=== PATIENT | female | born 1950 | race Two or more races ===

== ENCOUNTER 2017-01-10 11:33 | Inpatient (IN) | payer MEDICARE, OTHER ==
[~2017-01-10] VITALS: Ht 172.7 cm; Wt 63.4 kg
[2017-01-10 13:02] LABS: Basophils # (auto) 0 uL; Basophils % (auto) 0.2 % (0.0-2.0); Eosinophils # (auto) 0 uL; Eosinophils % (auto) 0.4 % (0.0-7.0); Hematocrit 39.1 % (36.0-46.0); Lymphocytes # (auto) 0.4 uL; Mean Corpuscular Hemoglobin 30.7 pg (28.0-32.0); Mean Corpuscular Hgb Conc. 33.1 g/dL (32.0-36.0); Mean Corpuscular Volume 92.8 fL (80.0-100.0); Mean Platelet Volume 8.9 fL (7.4-10.4); Monocytes # (auto) 0.2 uL; Monocytes % (auto) 4.4 % (0.0-12.0); Neutrophils # (auto) 4.4 uL; Platelet Count (auto) 129 10^3/uL (140-450); Red Cell Distribution Width 16.2 % (11.6-16.0); White Blood Cell 5.1 10^3/uL (4.4-10.8)
[2017-01-10 13:28] LABS: Albumin 3.8 g/dL (3.4-5.0); Alkaline Phosphatase 107 U/L (45-117); Anion Gap 10 (5-15); Aspartate Aminotransferase 19 U/L (15-37); BUN/Creatinine Ratio 8.1; Bilirubin, Total 0.5 mg/dL (0.2-1.0); Blood Urea Nitrogen 5 mg/dL (7-18); Calcium 9.1 mg/dL (8.5-10.1); Carbon Dioxide 20 mmol/L (21-32); Chloride 110 mmol/L (98-107); GFR African American 123 mL/min; GFR Non-African American 102 mL/min; Glucose 112 mg/dL (74-106); Potassium 4.2 mmol/L (3.5-5.1); Sodium 140 mmol/L (136-145); Total Protein 7.1 g/dL (6.4-8.2)
[2017-01-10] MEDS ORDERED: SODIUM CHLORIDE 0.9% 500 ML IVB ONE (13:46)
[2017-01-10 16:59] LABS: INR 0.97 (0.9-1.15); Partial Thromboplastin Time 25.1 sec (22.64-33.71); Prothrombin Time 10.5 sec (9.37-12.3)
[2017-01-10] MEDS ORDERED: TEMAZEPAM 15 MG CAP PO PRN (17:00)
[2017-01-10] MEDS ORDERED: LORazepam 0.5 MG TAB PO PRN (17:00)
[2017-01-10] MEDS ORDERED: PROMETHAZINE HCL 25 MG/ML 1ML IV PRN (17:00)
[2017-01-10] MEDS ORDERED: NITROGLYCERIN 0.4 MG SL TAB SL PRN (17:00)
[2017-01-10] MEDS ORDERED: HYDROcodone-ACET 5/325MG TAB PO PRN (17:00)
[2017-01-10] MEDS ORDERED: ALBUTEROL SULF 2.5 MG/0.5ML(0.5%) NEB SOLN NEB PRN (17:00)
[2017-01-10] MEDS ORDERED: LACTULOSE 20Gm/30ML SOLN PO PRN (17:00)
[2017-01-10] MEDS ORDERED: ACETAMINOPHEN 500 MG TAB PO PRN (17:00)
[2017-01-10] MEDS ORDERED: MORPHINE SULF INJ 2 MG/ML SYRINGE 1ML IV PRN ×2 (17:00)
[2017-01-10] MEDS: SODIUM CHLORIDE 0.9% 1,000 ML IV SCH (17:14)
[2017-01-10] MEDS ORDERED: ASPirin 81 mg TAB PO ONE (17:15)
[2017-01-10] MEDS ORDERED: ENOXAPARIN SOD 40 MG/0.4 ML SYRINGE SC ONE (17:30)
[2017-01-10 17:41] LABS: Temperature: 23.7 C (20.0-25.0)
[2017-01-10 20:30] VITALS: BP 152/84
[2017-01-10] MEDS ORDERED: PRE5T PO (20:39)
[2017-01-10] MEDS ORDERED: GABA600T PO ×2 (20:39)
[2017-01-10 20:54] VITALS: BP 152/84
[2017-01-11 01:52] VITALS: BP 152/84
[2017-01-11 04:59] VITALS: BP 136/89
[2017-01-11] MEDS: SODIUM CHLORIDE 0.9% 1,000 ML IV SCH (05:42)
[2017-01-11 06:23] LABS: Cholesterol 137 mg/dL (< 200); HDL Cholesterol 27 mg/dL (40-59); LDL Cholesterol 98 mg/dL (< 100); Triglycerides 224 mg/dL (< 150)
[2017-01-11 07:30] VITALS: BP 155/81
[2017-01-11 07:57] VITALS: BP 155/81
[2017-01-11 09:39] LABS: Urine RBC None Seen /hpf (0 - 4)
[2017-01-11 09:57] LABS: Urine Bilirubin Negative (Negative); Urine Blood Negative /uL (Negative); Urine Color Yellow (Yellow); Urine Glucose Normal (Normal); Urine Ketone Negative (Negative); Urine Nitrite Negative (Negative); Urine Squamous Epithelial Cell FEW /hpf (<5); Urine Urobilinogen Normal (Negative)
[2017-01-11] MEDS ORDERED: ENOXAPARIN SOD 40 MG/0.4 ML SYRINGE SC SCH (10:00)
[2017-01-11] MEDS ORDERED: ASPirin 81 mg TAB PO SCH (10:00)
[2017-01-11] MEDS ORDERED: predniSONE 5 MG TAB PO SCH (10:00)
[2017-01-11 12:09] VITALS: BP 144/75
== END 2017-01-11 17:20 | disposition home or self-care (01) | DRG 74 ==
LOC: EDBD 11:33 → ER 11:40 → OVERFLOW 13:48 → OBSVTOIN 13:48 → TELE 13:49 → TELE-EAST 19:47
PROVIDERS: ADMIT Family Medicine; ATTEND Internal Medicine
DX: G90.8 Other disorders of autonomic nervous system (principal); M33.20 Polymyositis, organ involvement unspecified; F32.9 Major depressive disorder, single episode, unspecified; F41.9 Anxiety disorder, unspecified; G62.9 Polyneuropathy, unspecified; I10 Essential (primary) hypertension; J44.9 Chronic obstructive pulmonary disease, unspecified; K22.2 Esophageal obstruction; W18.39XA Other fall on same level, initial encounter; M19.90 Unspecified osteoarthritis, unspecified site; S13.4XXA Sprain of ligaments of cervical spine, initial encounter; D70.9 Neutropenia, unspecified; M48.02 Spinal stenosis, cervical region; R22.9 Localized swelling, mass and lump, unspecified; Z85.3 Personal history of malignant neoplasm of breast; Z90.12 Acquired absence of left breast and nipple; Y93.89 Activity, other specified; Y92.513 Shop (commercial) as the place of occurrence of the external cause; Y99.8 Other external cause status; Z90.710 Acquired absence of both cervix and uterus; Z72.89 Other problems related to lifestyle
CPT/HCPCS: 36415; 70450; 71010; 72125; 72192; 80053; 80061; 80307; 81001; 82550; 82607; 82746; 83735; 84443; 84484; 85025; 85610; 85652; 85730; 87081; 93005; 93306; 94761; 96372; G0378

== ENCOUNTER 2023-01-15 14:46 | Inpatient (IN) | payer MEDICARE, OTHER ==
[~2023-01-15] VITALS: Ht 162.6 cm; Wt 89.7 kg
[~2023-01-15 14:46] MED LIST: GABA600T PO; PRE5T PO
[2023-01-15] MEDS ORDERED: PANTOPRAZOLE 40 MG/10 ML VIAL INJ IV ONE (16:00)
[2023-01-15] MEDS ORDERED: PANTOPRAZOLE 40mg/50ML NS AE 50 ML IV ONE (16:00)
[2023-01-15] MEDS ORDERED: SODIUM CHLORIDE 0.9% 1,000 ML IV ONE (16:15)
[2023-01-15 17:18] LABS: Basophils # (auto) 0 10 ^3/uL (0-0.2); Basophils % (auto) 0.8 % (0.0-2.0); Eosinophils # (auto) 0 10 ^3/uL (0-0.8); Eosinophils % (auto) 0.6 % (0.0-7.0); Hematocrit 35.1 % (36.0-46.0); Hemoglobin 10.7 g/dL (12.2-16.2); Lymphocytes # (auto) 0.7 10 ^3/uL (0.4-5.4); Lymphocytes % (auto) 14.4 % (10.0-50.0); Mean Corpuscular Hemoglobin 25.4 pg (28.0-32.0); Mean Corpuscular Hgb Conc. 30.4 g/dL (32.0-36.0); Mean Corpuscular Volume 83.6 fL (80.0-100.0); Monocytes # (auto) 0.3 10 ^3/uL (0-1.3); Monocytes % (auto) 5.3 % (0.0-12.0); Neutrophils % (auto) 78.9 % (37.0-80.0); Nucleated Red Blood Cells % 0.1 %
[2023-01-15 17:33] LABS: Urine Bacteria NONE SEEN /hpf (None Seen); Urine Blood Negative /uL (Negative); Urine Hyaline Cast MOD /lpf (0 - 2); Urine Specific Gravity 1.018 (1.001-1.035); Urine WBC 9 /hpf (0 - 5)
[2023-01-15 17:34] LABS: INR 1.19 (0.9-1.15); Partial Thromboplastin Time 28.8 sec (24.6-33.4)
[2023-01-15 17:36] LABS: Albumin 2.2 g/dL (3.4-5.0); Magnesium 2.1 mg/dL (1.6-2.6); Potassium 5.1 mmol/L (3.5-5.1)
[2023-01-15 17:39] LABS: Lactic Acid w/Reflex 2.4 mmol/L (0.4-2.0)
[2023-01-15] MEDS ORDERED: LACTATED RINGER'S 1,000 ML IV ONE (17:45)
[2023-01-15] MEDS ORDERED: VANCOMYCIN 1GM/250ML 250 ML IV ONE ×2 (17:45→20:00)
[2023-01-15] MEDS ORDERED: CEFEPIME 1GM/ 50ML 50 ML IV ONE (17:45)
[2023-01-15 17:50] LABS: BUN/Creatinine Ratio 23.5 (10.0-20.0); Bilirubin, Total 0.5 mg/dL (0.2-1.0); Total Protein 5.2 g/dL (6.4-8.2)
[2023-01-15] MEDS ORDERED: NITROGLYCERIN 0.4 MG SL TAB SL PRN (19:15)
[2023-01-15] MEDS ORDERED: VANCOMYCIN PER PHARMACY 0 MG IV SCH (19:15)
[2023-01-15] MEDS ORDERED: MAGNESIUM SULFATE 1GM/100ML 100 ML IV ONE (19:15)
[2023-01-15] MEDS ORDERED: FUROSEMIDE 40 MG/4 ML VIAL IV ONE (19:30)
[2023-01-15] MEDS ORDERED: PARO10TA93 PO (19:31)
[2023-01-15] MEDS ORDERED: FURO40TA4 PO (19:31)
[2023-01-15] MEDS ORDERED: APIX5TAB PO (19:31)
[2023-01-15] MEDS ORDERED: AMIT-118 PO (19:31)
[2023-01-15] MEDS ORDERED: GABA-339 PO (19:31)
[2023-01-15] MEDS ORDERED: MET25T PO (19:31)
[2023-01-15] MEDS ORDERED: SACU1TAB PO (19:31)
[2023-01-15] MEDS ORDERED: OMEP1CAP70 PO (19:31)
[2023-01-15] MEDS ORDERED: ALBUMIN 25% 50 ML IV ONE (20:00)
[2023-01-15] MEDS ORDERED: SODIUM CHLORIDE 0.9% 1,000 ML IV SCH (20:00)
[2023-01-15] MEDS ORDERED: ALBUTEROL SULF 2.5 MG/0.5ML(0.5%) NEB SOLN NEB PRN (20:15)
[2023-01-15] MEDS ORDERED: IPRATROPIUM BROM 0.5 MG/2.5ML INH SOL NEB PRN (20:15)
[2023-01-15 20:42] VITALS: BP 93/59
[2023-01-15] MEDS: NOREPINEPHRINE 8 MG/250ML KIT 250 ML IV SCH (21:56)
[2023-01-15] MEDS: METOPROLOL TARTRATE 25 MG TAB PO SCH (22:00)
[2023-01-15] MEDS ORDERED: VANCOMYCIN 500 MG in D5W 5% 100 ML IV ONE (22:00)
[2023-01-15] MEDS: GABAPENTIN 300 MG CAP PO SCH (22:53)
[2023-01-16] VITALS (87 sets, daily range): BP systolic 65–149; BP diastolic 46–99
[2023-01-16] MEDS ORDERED: CEFEPIME 1GM/ 50ML 50 ML IV SCH (03:00)
[2023-01-16 04:33] LABS: Basophils # (auto) 0 10 ^3/uL (0-0.2); Eosinophils # (auto) 0.1 10 ^3/uL (0-0.8); Monocytes # (auto) 0.3 10 ^3/uL (0-1.3); Monocytes % (auto) 6.3 % (0.0-12.0)
[2023-01-16 04:34] LABS: Red Cell Distribution Width 19.1 % (11.8-14.3)
[2023-01-16 04:36] LABS: Basophils % (auto) 0.6 % (0.0-2.0); Eosinophils % (auto) 1.7 % (0.0-7.0); Hematocrit 37.6 % (36.0-46.0); Lymphocytes # (auto) 0.8 10 ^3/uL (0.4-5.4); Lymphocytes % (auto) 14.4 % (10.0-50.0); Mean Corpuscular Hemoglobin 26.1 pg (28.0-32.0); Mean Corpuscular Volume 81.4 fL (80.0-100.0); Nucleated Red Blood Cells % 0.1 %; Red Blood Cells 4.61 10^6/uL (4.0-5.20); White Blood Cell 5.2 10^3/uL (4.4-10.8)
[2023-01-16 04:40] LABS: Magnesium 2.2 mg/dL (1.6-2.6); Potassium 3.7 mmol/L (3.5-5.1)
[2023-01-16 04:48] LABS: Albumin 2.3 g/dL (3.4-5.0); BUN/Creatinine Ratio 28.4 (10.0-20.0); Bilirubin, Total 0.9 mg/dL (0.2-1.0); Calcium 7.8 mg/dL (8.5-10.1)
[2023-01-16] MEDS: GABAPENTIN 300 MG CAP PO SCH (06:00)
[2023-01-16] MEDS: CEFEPIME 1GM/ 50ML 50 ML IV SCH ×3 (07:01→23:01)
[2023-01-16] MEDS: METOPROLOL TARTRATE 25 MG TAB PO SCH (10:00)
[2023-01-16] MEDS ORDERED: FUROSEMIDE 40 MG/4 ML VIAL IV SCH (10:00)
[2023-01-16] MEDS: predniSONE 5 MG TAB PO SCH ×2 (10:00→12:39)
[2023-01-16] MEDS: PANTOPRAZOLE 40 MG/10 ML VIAL INJ IV SCH ×2 (10:36→22:52)
[2023-01-16] MEDS: NOREPINEPHRINE 8 MG/250ML KIT 250 ML IV SCH (18:00)
[2023-01-16] MEDS ORDERED: METOPROLOL TARTRATE 1MG/1ML-5ML VIAL IV ONE (22:30)
[2023-01-17] VITALS (93 sets, daily range): BP systolic 83–131; BP diastolic 36–92
[2023-01-17 04:25] LABS: Basophils # (auto) 0 10 ^3/uL (0-0.2); Eosinophils # (auto) 0 10 ^3/uL (0-0.8); Lymphocytes # (auto) 0.8 10 ^3/uL (0.4-5.4); Monocytes # (auto) 0.3 10 ^3/uL (0-1.3); Nucleated Red Blood Cells % 0.1 %
[2023-01-17 04:26] LABS: Basophils % (auto) 0.6 % (0.0-2.0); Eosinophils % (auto) 0.7 % (0.0-7.0); Hematocrit 37.4 % (36.0-46.0); Hemoglobin 12.2 g/dL (12.2-16.2); Lymphocytes % (auto) 13.3 % (10.0-50.0); Mean Corpuscular Hemoglobin 26.6 pg (28.0-32.0); Mean Corpuscular Hgb Conc. 32.6 g/dL (32.0-36.0); Mean Corpuscular Volume 81.7 fL (80.0-100.0); Monocytes % (auto) 5.6 % (0.0-12.0); Neutrophils # (auto) 4.8 10 ^3/uL (1.6-8.6); Neutrophils % (auto) 79.8 % (37.0-80.0); Red Blood Cells 4.58 10^6/uL (4.0-5.20); Red Cell Distribution Width 19.3 % (11.8-14.3)
[2023-01-17 04:32] LABS: Potassium 4.1 mmol/L (3.5-5.1)
[2023-01-17 04:41] LABS: BUN/Creatinine Ratio 29.3 (10.0-20.0); Calcium 7.7 mg/dL (8.5-10.1)
[2023-01-17] MEDS: CEFEPIME 1GM/ 50ML 50 ML IV SCH ×3 (06:57→23:09)
[2023-01-17] MEDS ORDERED: FUROSEMIDE 20 MG/2 ML VIAL IV SCH (10:00)
[2023-01-17] MEDS: PANTOPRAZOLE 40 MG/10 ML VIAL INJ IV SCH ×2 (11:27→21:46)
[2023-01-17] MEDS ORDERED: FUROSEMIDE 20 MG/2 ML VIAL IV ONE (14:00)
[2023-01-17] MEDS: predniSONE 5 MG TAB PO SCH (16:28)
[2023-01-17] MEDS ORDERED: LEVO50TA7 PO (16:31)
[2023-01-17] MEDS: HYDROcodone-ACET 5/325MG TAB PO PRN (16:40)
[2023-01-17] MEDS ORDERED: DIGOXIN (250MCG/ML) 2 ML AMPULE IV ONE (18:00)
[2023-01-17] MEDS: Ensure HIGH Protein Chocolate 8oz Bottle PO SCH (18:49)
[2023-01-17] MEDS: NOREPINEPHRINE 8 MG/250ML KIT 250 ML IV SCH (18:49)
[2023-01-17] MEDS: PHENYLEPHRINE IV 250 ML IV SCH (19:50)
[2023-01-17] MEDS ORDERED: AMIODARONE HCL IV ONE (22:45)
[2023-01-17] MEDS ORDERED: D5W 5% IV ONE (22:45)
[2023-01-17] MEDS ORDERED: AMIODARONE HCL (50 MG/ ML) 3 ML VIAL IV ONE (22:54)
[2023-01-18] VITALS (83 sets, daily range): BP systolic 71–152; BP diastolic 50–109
[2023-01-18] MEDS: AMIODARONE 450mg/250ml AE 250 ML IV SCH ×3 (01:41→19:25)
[2023-01-18] MEDS: PHENYLEPHRINE IV 250 ML IV SCH ×2 (03:20→11:57)
[2023-01-18 04:28] LABS: Basophils # (auto) 0 10 ^3/uL (0-0.2); Eosinophils # (auto) 0.1 10 ^3/uL (0-0.8); Lymphocytes # (auto) 0.5 10 ^3/uL (0.4-5.4); Lymphocytes % (auto) 10.4 % (10.0-50.0); Monocytes # (auto) 0.3 10 ^3/uL (0-1.3); White Blood Cell 5.2 10^3/uL (4.4-10.8)
[2023-01-18 04:32] LABS: Basophils % (auto) 0.8 % (0.0-2.0); Eosinophils % (auto) 1.3 % (0.0-7.0); Hemoglobin 11.8 g/dL (12.2-16.2); Mean Corpuscular Hemoglobin 26.2 pg (28.0-32.0); Mean Corpuscular Volume 82.1 fL (80.0-100.0); Monocytes % (auto) 5.9 % (0.0-12.0); Neutrophils # (auto) 4.2 10 ^3/uL (1.6-8.6); Neutrophils % (auto) 81.6 % (37.0-80.0); Nucleated Red Blood Cells % 0.2 %; Red Blood Cells 4.51 10^6/uL (4.0-5.20); Red Cell Distribution Width 18.9 % (11.8-14.3)
[2023-01-18 04:43] LABS: Potassium 3.9 mmol/L (3.5-5.1)
[2023-01-18 04:49] LABS: BUN/Creatinine Ratio 25.7 (10.0-20.0); Calcium 7.8 mg/dL (8.5-10.1)
[2023-01-18] MEDS: CEFEPIME 1GM/ 50ML 50 ML IV SCH ×3 (06:26→22:10)
[2023-01-18] MEDS: LEVOTHYROXINE SODIUM 25 MCG TAB PO SCH (06:27)
[2023-01-18] MEDS ORDERED: AMIODARONE 450mg/250ml AE 250 ML IV SCH (07:15)
[2023-01-18] MEDS: Ensure HIGH Protein Chocolate 8oz Bottle PO SCH ×3 (09:18→18:40)
[2023-01-18] MEDS: PANTOPRAZOLE 40 MG/10 ML VIAL INJ IV SCH ×2 (10:37→22:09)
[2023-01-18] MEDS: predniSONE 5 MG TAB PO SCH (10:37)
[2023-01-18] MEDS: FUROSEMIDE 20 MG/2 ML VIAL IV SCH (10:38)
[2023-01-18] MEDS ORDERED: dilTIAZem HCL 180MG ER CAP PO ONE (11:00)
[2023-01-18] MEDS ORDERED: DIGOXIN 0.125 MG TAB PO ONE (11:00)
[2023-01-18] MEDS: ACETAMINOPHEN 325 MG TAB PO PRN (11:03)
[2023-01-18] MEDS ORDERED: METOPROLOL TARTRATE 25 MG TAB PO ONE (14:45)
[2023-01-18] MEDS ORDERED: MORPHINE SULFATE INJ 2 MG/ml SYRG IV ONE (17:45)
[2023-01-18] MEDS: METOPROLOL TARTRATE 25 MG TAB PO SCH (22:00)
[2023-01-18] MEDS: guaiFENesin-DM 100/10mg/5ml SYR PO PRN (22:09)
[2023-01-19] VITALS (94 sets, daily range): BP systolic 87–160; BP diastolic 36–103
[2023-01-19] MEDS: LEVOTHYROXINE SODIUM 25 MCG TAB PO SCH (06:27)
[2023-01-19] MEDS: CEFEPIME 1GM/ 50ML 50 ML IV SCH ×6 (06:27→21:23)
[2023-01-19 08:39] LABS: Eosinophils # (auto) 0.1 10 ^3/uL (0-0.8); Lymphocytes # (auto) 0.7 10 ^3/uL (0.4-5.4); White Blood Cell 5.9 10^3/uL (4.4-10.8)
[2023-01-19 08:41] LABS: Basophils # (auto) 0 10 ^3/uL (0-0.2); Basophils % (auto) 0.7 % (0.0-2.0); Eosinophils % (auto) 1.5 % (0.0-7.0); Hematocrit 35.5 % (36.0-46.0); Hemoglobin 11.7 g/dL (12.2-16.2); Lymphocytes % (auto) 11.5 % (10.0-50.0); Mean Corpuscular Hemoglobin 26.6 pg (28.0-32.0); Mean Corpuscular Hgb Conc. 32.9 g/dL (32.0-36.0); Mean Corpuscular Volume 80.8 fL (80.0-100.0); Monocytes # (auto) 0.3 10 ^3/uL (0-1.3); Monocytes % (auto) 5.8 % (0.0-12.0); Neutrophils # (auto) 4.7 10 ^3/uL (1.6-8.6); Neutrophils % (auto) 80.5 % (37.0-80.0); Nucleated Red Blood Cells % 0.2 %; Red Blood Cells 4.39 10^6/uL (4.0-5.20)
[2023-01-19 08:55] LABS: Calcium 7.8 mg/dL (8.5-10.1); Potassium 3.4 mmol/L (3.5-5.1)
[2023-01-19] MEDS: PANTOPRAZOLE 40 MG/10 ML VIAL INJ IV SCH ×2 (09:52→21:22)
[2023-01-19] MEDS: METOPROLOL TARTRATE 25 MG TAB PO SCH ×2 (09:53→21:25)
[2023-01-19] MEDS: DIGOXIN 0.125 MG TAB PO SCH (09:53)
[2023-01-19] MEDS: predniSONE 5 MG TAB PO SCH (09:53)
[2023-01-19] MEDS: FUROSEMIDE 20 MG/2 ML VIAL IV SCH (09:54)
[2023-01-19] MEDS: Ensure HIGH Protein Chocolate 8oz Bottle PO SCH ×3 (09:54→18:00)
[2023-01-19] MEDS ORDERED: dilTIAZem HCL 180MG ER CAP PO SCH (10:00)
[2023-01-19] MEDS: AMIODARONE 450mg/250ml AE 250 ML IV SCH (12:30)
[2023-01-19] MEDS: guaiFENesin-DM 100/10mg/5ml SYR PO PRN ×2 (12:33→21:22)
[2023-01-20] VITALS (20 sets, daily range): BP systolic 100–142; BP diastolic 51–78
[2023-01-20] MEDS: AMIODARONE 450mg/250ml AE 250 ML IV SCH (03:38)
[2023-01-20] MEDS: CEFEPIME 1GM/ 50ML 50 ML IV SCH ×3 (06:58→22:17)
[2023-01-20] MEDS: LEVOTHYROXINE SODIUM 25 MCG TAB PO SCH (07:32)
[2023-01-20] MEDS: Ensure HIGH Protein Chocolate 8oz Bottle PO SCH ×3 (08:00→19:14)
[2023-01-20] MEDS: PANTOPRAZOLE 40 MG/10 ML VIAL INJ IV SCH ×2 (10:08→22:17)
[2023-01-20] MEDS: FUROSEMIDE 20 MG/2 ML VIAL IV SCH (10:09)
[2023-01-20] MEDS: ACETAMINOPHEN 325 MG TAB PO PRN ×2 (10:09→22:16)
[2023-01-20] MEDS: predniSONE 5 MG TAB PO SCH (10:10)
[2023-01-20] MEDS: DIGOXIN 0.125 MG TAB PO SCH (10:10)
[2023-01-20] MEDS: METOPROLOL TARTRATE 25 MG TAB PO SCH ×2 (10:10→22:17)
[2023-01-20] MEDS ORDERED: AMIODARONE HCL 200 MG TAB PO ONE (17:00)
[2023-01-21] VITALS: BP 116/62
[2023-01-21] MEDS ORDERED: diphenhdrAMINE HCL 25 MG CAP PO ONE (02:45)
[2023-01-21 04:00] VITALS: BP 129/83
[2023-01-21] MEDS: HYDROcodone-ACET 5/325MG TAB PO PRN (04:34)
[2023-01-21] MEDS: LEVOTHYROXINE SODIUM 25 MCG TAB PO SCH (07:11)
[2023-01-21] MEDS: CEFEPIME 1GM/ 50ML 50 ML IV SCH ×3 (07:11→22:32)
[2023-01-21 08:00] VITALS: BP 94/48
[2023-01-21] MEDS: Ensure HIGH Protein Chocolate 8oz Bottle PO SCH ×3 (08:00→18:00)
[2023-01-21 10:00] VITALS: BP 140/72
[2023-01-21] MEDS ORDERED: AMIODARONE HCL 200 MG TAB PO SCH (10:00)
[2023-01-21 10:24] LABS: Basophils # (auto) 0 10 ^3/uL (0-0.2); Basophils % (auto) 0.7 % (0.0-2.0); Eosinophils # (auto) 0.1 10 ^3/uL (0-0.8); Eosinophils % (auto) 2.1 % (0.0-7.0); Hematocrit 41.6 % (36.0-46.0); Hemoglobin 12.5 g/dL (12.2-16.2); Lymphocytes # (auto) 0.5 10 ^3/uL (0.4-5.4); Lymphocytes % (auto) 11.5 % (10.0-50.0); Mean Corpuscular Volume 86.7 fL (80.0-100.0); Monocytes # (auto) 0.3 10 ^3/uL (0-1.3); Monocytes % (auto) 6.6 % (0.0-12.0); Neutrophils # (auto) 3.4 10 ^3/uL (1.6-8.6); Neutrophils % (auto) 79.1 % (37.0-80.0); Nucleated Red Blood Cells % 0.5 %; Red Cell Distribution Width 19.7 % (11.8-14.3); White Blood Cell 4.4 10^3/uL (4.4-10.8)
[2023-01-21] MEDS: FUROSEMIDE 20 MG/2 ML VIAL IV SCH (10:25)
[2023-01-21] MEDS: PANTOPRAZOLE 40 MG/10 ML VIAL INJ IV SCH (10:25)
[2023-01-21] MEDS: predniSONE 5 MG TAB PO SCH (10:26)
[2023-01-21] MEDS: DIGOXIN 0.125 MG TAB PO SCH (10:26)
[2023-01-21] MEDS: METOPROLOL TARTRATE 25 MG TAB PO SCH ×2 (10:27→22:00)
[2023-01-21 10:41] LABS: Potassium 3.2 mmol/L (3.5-5.1)
[2023-01-21 10:52] LABS: BUN/Creatinine Ratio 27.4 (10.0-20.0); Calcium 7.9 mg/dL (8.5-10.1); Magnesium 2.3 mg/dL (1.6-2.6)
[2023-01-21] MEDS ORDERED: PARoxetine 20 MG TAB PO ONE (11:30)
[2023-01-21] MEDS ORDERED: POTASSIUM CHL 20 Meq TABLET PO ONE (11:30)
[2023-01-21 12:00] VITALS: BP 131/69
[2023-01-21] MEDS: ACETAMINOPHEN 325 MG TAB PO PRN (12:14)
[2023-01-21] MEDS: MORPHINE SULFATE INJ 2 MG/ml SYRG IV PRN ×2 (13:33→18:41)
[2023-01-21 20:00] VITALS: BP 128/69
[2023-01-21] MEDS: AMITRIPTYLINE HCL 25 MG TAB PO SCH (22:00)
[2023-01-21] MEDS: PANTOPRAZOLE 40 MG TAB PO SCH (22:00)
[2023-01-22] VITALS (9 sets, daily range): BP systolic 102–137; BP diastolic 46–79
[2023-01-22] MEDS: CEFEPIME 1GM/ 50ML 50 ML IV SCH ×3 (06:08→22:00)
[2023-01-22] MEDS: LEVOTHYROXINE SODIUM 25 MCG TAB PO SCH (06:38)
[2023-01-22 07:59] LABS: Basophils # (auto) 0 10 ^3/uL (0-0.2); Eosinophils # (auto) 0.1 10 ^3/uL (0-0.8); Lymphocytes # (auto) 0.5 10 ^3/uL (0.4-5.4); Neutrophils % (auto) 81.9 % (37.0-80.0)
[2023-01-22] MEDS: Ensure HIGH Protein Chocolate 8oz Bottle PO SCH ×3 (08:00→22:16)
[2023-01-22 08:03] LABS: Basophils % (auto) 0.6 % (0.0-2.0); Eosinophils % (auto) 1.2 % (0.0-7.0); Hematocrit 38.5 % (36.0-46.0); Hemoglobin 12.2 g/dL (12.2-16.2); Mean Corpuscular Hemoglobin 26.4 pg (28.0-32.0); Mean Corpuscular Hgb Conc. 31.7 g/dL (32.0-36.0); Mean Corpuscular Volume 83.5 fL (80.0-100.0); Monocytes # (auto) 0.3 10 ^3/uL (0-1.3); Monocytes % (auto) 6.3 % (0.0-12.0); Neutrophils # (auto) 4.4 10 ^3/uL (1.6-8.6); Nucleated Red Blood Cells % 0.2 %; Red Blood Cells 4.62 10^6/uL (4.0-5.20); Red Cell Distribution Width 19.3 % (11.8-14.3); White Blood Cell 5.4 10^3/uL (4.4-10.8)
[2023-01-22 09:39] LABS: Calcium 8.2 mg/dL (8.5-10.1); Potassium 3.7 mmol/L (3.5-5.1)
[2023-01-22] MEDS: FUROSEMIDE 20 MG/2 ML VIAL IV SCH (10:19)
[2023-01-22] MEDS: predniSONE 5 MG TAB PO SCH (10:19)
[2023-01-22] MEDS: METOPROLOL TARTRATE 25 MG TAB PO SCH ×2 (10:19→22:00)
[2023-01-22] MEDS: PANTOPRAZOLE 40 MG TAB PO SCH ×2 (10:19→22:00)
[2023-01-22] MEDS: DIGOXIN 0.125 MG TAB PO SCH (10:20)
[2023-01-22] MEDS: PARoxetine 20 MG TAB PO SCH (10:20)
[2023-01-22] MEDS: POTASSIUM CHL 20 Meq TABLET PO SCH (10:20)
[2023-01-22] MEDS: AMITRIPTYLINE HCL 25 MG TAB PO SCH (22:00)
[2023-01-23] VITALS: BP 134/65
[2023-01-23 04:00] VITALS: BP 133/64
[2023-01-23] MEDS: CEFEPIME 1GM/ 50ML 50 ML IV SCH ×2 (06:00→21:54)
[2023-01-23] MEDS: LEVOTHYROXINE SODIUM 25 MCG TAB PO SCH (07:00)
[2023-01-23 08:00] VITALS: BP 125/67
[2023-01-23] MEDS: Ensure HIGH Protein Chocolate 8oz Bottle PO SCH ×3 (08:00→18:00)
[2023-01-23] MEDS: PARoxetine 20 MG TAB PO SCH ×2 (10:00→10:52)
[2023-01-23] MEDS: predniSONE 5 MG TAB PO SCH ×2 (10:00→10:53)
[2023-01-23] MEDS: METOPROLOL TARTRATE 25 MG TAB PO SCH ×3 (10:00→21:57)
[2023-01-23] MEDS: POTASSIUM CHL 20 Meq TABLET PO SCH ×2 (10:00→10:53)
[2023-01-23] MEDS: FUROSEMIDE 40 MG TAB PO SCH (10:00)
[2023-01-23] MEDS: DIGOXIN 0.125 MG TAB PO SCH ×2 (10:00→10:54)
[2023-01-23] MEDS: PANTOPRAZOLE 40 MG TAB PO SCH ×2 (10:53→21:58)
[2023-01-23 16:00] VITALS: BP 134/64
[2023-01-23 20:00] VITALS: BP 144/57
[2023-01-23 21:47] LABS: Folate (Folic Acid) 8.04 ng/mL (5.38-24)
[2023-01-23 23:00] VITALS: BP 154/90
[2023-01-24] VITALS (9 sets, daily range): BP systolic 134–153; BP diastolic 63–81
[2023-01-24 04:51] LABS: Basophils # (auto) 0.1 10 ^3/uL (0-0.2); Eosinophils # (auto) 0.1 10 ^3/uL (0-0.8); Eosinophils % (auto) 1.3 % (0.0-7.0); Hematocrit 38.1 % (36.0-46.0); Hemoglobin 12.3 g/dL (12.2-16.2); Lymphocytes # (auto) 0.7 10 ^3/uL (0.4-5.4); Lymphocytes % (auto) 11.1 % (10.0-50.0); Mean Corpuscular Hemoglobin 27.4 pg (28.0-32.0); Mean Corpuscular Hgb Conc. 32.4 g/dL (32.0-36.0); Mean Corpuscular Volume 84.7 fL (80.0-100.0); Monocytes # (auto) 0.4 10 ^3/uL (0-1.3); Monocytes % (auto) 6.3 % (0.0-12.0); Neutrophils # (auto) 4.8 10 ^3/uL (1.6-8.6); Neutrophils % (auto) 80.3 % (37.0-80.0); Nucleated Red Blood Cells % 0.2 %; Red Cell Distribution Width 19.9 % (11.8-14.3)
[2023-01-24] MEDS: CEFEPIME 1GM/ 50ML 50 ML IV SCH ×2 (05:20→23:35)
[2023-01-24] MEDS: LEVOTHYROXINE SODIUM 25 MCG TAB PO SCH (07:00)
[2023-01-24] MEDS: Ensure HIGH Protein Chocolate 8oz Bottle PO SCH ×3 (08:00→18:00)
[2023-01-24] MEDS: POTASSIUM CHL 20 Meq TABLET PO SCH (09:32)
[2023-01-24] MEDS: DIGOXIN 0.125 MG TAB PO SCH (09:32)
[2023-01-24] MEDS: FUROSEMIDE 40 MG TAB PO SCH (09:32)
[2023-01-24] MEDS: METOPROLOL TARTRATE 25 MG TAB PO SCH ×2 (09:32→22:00)
[2023-01-24] MEDS: predniSONE 5 MG TAB PO SCH (09:32)
[2023-01-24] MEDS: PARoxetine 20 MG TAB PO SCH (09:33)
[2023-01-24] MEDS: PANTOPRAZOLE 40 MG TAB PO SCH ×2 (09:33→22:00)
[2023-01-24] MEDS: IMMUNE GLOBULIN IV SCH (11:07)
[2023-01-24] MEDS: ASPirin 300 MG RECTAL SUPP PR SCH (11:07)
[2023-01-24] MEDS ORDERED: Jevity 1.2 Cal/Fiber 1 Liter GT SCH (12:00)
[2023-01-24 13:46] LABS: Albumin 2.3 g/dL (3.4-5.0); Calcium 8.1 mg/dL (8.5-10.1); Potassium 3.9 mmol/L (3.5-5.1)
[2023-01-24 13:51] LABS: BUN/Creatinine Ratio 38.6 (10.0-20.0); Bilirubin, Total 0.8 mg/dL (0.2-1.0); Total Protein 6.6 g/dL (6.4-8.2)
[2023-01-24] MEDS: ATORVASTATIN 20 MG TAB PO SCH (22:00)
[2023-01-25] VITALS (20 sets, daily range): BP systolic 123–158; BP diastolic 62–80
[2023-01-25] MEDS: CEFEPIME 1GM/ 50ML 50 ML IV SCH ×3 (06:44→21:11)
[2023-01-25] MEDS: LEVOTHYROXINE SODIUM 25 MCG TAB PO SCH (07:00)
[2023-01-25] MEDS: Ensure HIGH Protein Chocolate 8oz Bottle PO SCH ×2 (08:00→12:00)
[2023-01-25] MEDS: DIGOXIN 0.125 MG TAB PO SCH (10:00)
[2023-01-25] MEDS: POTASSIUM CHL 20 Meq TABLET PO SCH (10:00)
[2023-01-25] MEDS: FUROSEMIDE 40 MG TAB PO SCH (10:00)
[2023-01-25] MEDS: METOPROLOL TARTRATE 25 MG TAB PO SCH ×2 (10:00→21:18)
[2023-01-25] MEDS: predniSONE 5 MG TAB PO SCH (10:00)
[2023-01-25] MEDS: PANTOPRAZOLE 40 MG TAB PO SCH (10:00)
[2023-01-25] MEDS: PARoxetine 20 MG TAB PO SCH (10:00)
[2023-01-25] MEDS: IMMUNE GLOBULIN IV SCH (11:10)
[2023-01-25] MEDS: ASPirin 300 MG RECTAL SUPP PR SCH (11:11)
[2023-01-25] MEDS: ATORVASTATIN 20 MG TAB PO SCH (21:18)
[2023-01-26] VITALS (20 sets, daily range): BP systolic 128–152; BP diastolic 62–96
[2023-01-26 05:25] LABS: Basophils # (auto) 0 10 ^3/uL (0-0.2); Eosinophils # (auto) 0.1 10 ^3/uL (0-0.8); Eosinophils % (auto) 2.1 % (0.0-7.0); Hematocrit 37.5 % (36.0-46.0); Lymphocytes # (auto) 0.5 10 ^3/uL (0.4-5.4); Lymphocytes % (auto) 14.7 % (10.0-50.0); Mean Corpuscular Hemoglobin 27.3 pg (28.0-32.0); Mean Corpuscular Hgb Conc. 32.1 g/dL (32.0-36.0); Monocytes # (auto) 0.3 10 ^3/uL (0-1.3); Neutrophils # (auto) 2.7 10 ^3/uL (1.6-8.6); Neutrophils % (auto) 73.2 % (37.0-80.0); Nucleated Red Blood Cells % 0.4 %; Red Blood Cells 4.41 10^6/uL (4.0-5.20); White Blood Cell 3.7 10^3/uL (4.4-10.8)
[2023-01-26 05:26] LABS: Red Cell Distribution Width 20.4 % (11.8-14.3)
[2023-01-26 05:45] LABS: BUN/Creatinine Ratio 47.4 (10.0-20.0); Calcium 8.2 mg/dL (8.5-10.1); Magnesium 2.1 mg/dL (1.6-2.6); Potassium 3.8 mmol/L (3.5-5.1)
[2023-01-26] MEDS: CEFEPIME 1GM/ 50ML 50 ML IV SCH ×3 (05:50→21:24)
[2023-01-26] MEDS: LEVOTHYROXINE SODIUM 25 MCG TAB PO SCH (07:00)
[2023-01-26] MEDS: Ensure HIGH Protein Chocolate 8oz Bottle PO SCH ×2 (08:00→12:00)
[2023-01-26] MEDS: ASPirin 300 MG RECTAL SUPP PR SCH (10:52)
[2023-01-26] MEDS: ENOXAPARIN SOD 40 MG/0.4 ML SYRINGE SC SCH (10:54)
[2023-01-26] MEDS: predniSONE 5 MG TAB PO SCH (11:09)
[2023-01-26] MEDS: POTASSIUM CHL 20 Meq TABLET PO SCH (11:09)
[2023-01-26] MEDS: PARoxetine 20 MG TAB PO SCH (11:09)
[2023-01-26] MEDS: METOPROLOL TARTRATE 25 MG TAB PO SCH ×2 (11:09→21:24)
[2023-01-26] MEDS: PANTOPRAZOLE 40 MG TAB PO SCH (11:10)
[2023-01-26] MEDS: DIGOXIN 0.125 MG TAB PO SCH (11:10)
[2023-01-26] MEDS: FUROSEMIDE 40 MG TAB PO SCH (11:50)
[2023-01-26] MEDS: ATORVASTATIN 20 MG TAB PO SCH (21:23)
[2023-01-27 05:00] VITALS: BP 127/73
[2023-01-27] MEDS: LEVOTHYROXINE SODIUM 25 MCG TAB PO SCH (05:52)
[2023-01-27] MEDS: CEFEPIME 1GM/ 50ML 50 ML IV SCH ×2 (06:07→13:41)
[2023-01-27 08:47] VITALS: BP 121/69
[2023-01-27] MEDS: ENOXAPARIN SOD 40 MG/0.4 ML SYRINGE SC SCH (09:53)
[2023-01-27] MEDS ORDERED: ASPirin 81 mg TAB PO SCH (10:00)
[2023-01-27] MEDS: METOPROLOL TARTRATE 25 MG TAB PO SCH (10:53)
[2023-01-27] MEDS: FUROSEMIDE 40 MG TAB PO SCH (10:54)
[2023-01-27] MEDS: predniSONE 5 MG TAB PO SCH (10:54)
[2023-01-27] MEDS: PARoxetine 20 MG TAB PO SCH (10:54)
[2023-01-27] MEDS: POTASSIUM CHL 20 Meq TABLET PO SCH (10:54)
[2023-01-27] MEDS: PANTOPRAZOLE 40 MG TAB PO SCH (10:54)
[2023-01-27] MEDS: Ensure HIGH Protein Chocolate 8oz Bottle PO SCH ×2 (10:56→12:14)
[2023-01-27] MEDS ORDERED: DIGO1TAB48 PO (12:10)
[2023-01-27] MEDS ORDERED: ASPI-325 PO (12:10)
[2023-01-27] MEDS ORDERED: PANT40T PO (12:10)
[2023-01-27 12:47] VITALS: BP 133/96
[2023-01-27 13:00] VITALS: BP 133/96
[2023-01-27] MEDS: DIGOXIN 0.125 MG TAB PO SCH (13:41)
== END 2023-01-27 15:49 | disposition home health service (06) | DRG 871 ==
LOC: ER 14:46 → TELE 19:26 → ICU WEST 23:24 → DOU IN ICU 01-20 01:39 → TELE-WESTW 01-26 18:42
PROVIDERS: ADMIT Nurse Practitioner Family; ATTEND Internal Medicine
PROC: 30233N1 Transfusion of Nonautologous Red Blood Cells into Peripheral Vein, Percutaneous Approach (ICD-10-PCS; 2023-01-15)
PROC: 05H933Z Insertion of Infusion Device into Right Brachial Vein, Percutaneous Approach (ICD-10-PCS; principal; 2023-01-19)
PROC: B54MZZA Ultrasonography of Right Upper Extremity Veins, Guidance (ICD-10-PCS; 2023-01-19)
DX: A41.9 Sepsis, unspecified organism (principal); E43 Unspecified severe protein-calorie malnutrition; I50.43 Acute on chronic combined systolic (congestive) and diastolic (congestive) heart failure; R65.21 Severe sepsis with septic shock; J96.00 Acute respiratory failure, unspecified whether with hypoxia or hypercapnia; G93.41 Metabolic encephalopathy; J18.9 Pneumonia, unspecified organism; I63.9 Cerebral infarction, unspecified; N30.00 Acute cystitis without hematuria; I48.20 Chronic atrial fibrillation, unspecified; E87.20 Acidosis, unspecified; I31.39 Other pericardial effusion (noninflammatory); J44.0 Chronic obstructive pulmonary disease with (acute) lower respiratory infection; M33.20 Polymyositis, organ involvement unspecified; K92.2 Gastrointestinal hemorrhage, unspecified; I11.0 Hypertensive heart disease with heart failure; G62.9 Polyneuropathy, unspecified; E78.5 Hyperlipidemia, unspecified; E07.9 Disorder of thyroid, unspecified; D69.6 Thrombocytopenia, unspecified; E86.0 Dehydration; Z20.822 Contact with and (suspected) exposure to COVID-19; E66.01 Morbid (severe) obesity due to excess calories; M35.3 Polymyalgia rheumatica; Z68.33 Body mass index [BMI] 33.0-33.9, adult; Z79.52 Long term (current) use of systemic steroids; Z79.82 Long term (current) use of aspirin; Z79.899 Other long term (current) drug therapy; Z85.3 Personal history of malignant neoplasm of breast; Z83.3 Family history of diabetes mellitus; Z80.0 Family history of malignant neoplasm of digestive organs; Z82.49 Family history of ischemic heart disease and other diseases of the circulatory system; Z90.12 Acquired absence of left breast and nipple; Z90.710 Acquired absence of both cervix and uterus; Z79.01 Long term (current) use of anticoagulants
CPT/HCPCS: 36415; 36600; 70450; 70551; 71045; 71275; 80048; 80053; 80061; 80162; 80202; 81001; 82270; 82378; 82607; 82746; 82805; 83036; 83605; 83690; 83735; 83880; 84439; 84443; 84484; 85025; 85379; 85610; 85730; 86850; 86900; 86901; 86920; 87040; 87081; 87086; 93005; 93306; 93886; 93970; 95819; 96365; 96366; 96375; 97163; 97530; C9113; G0378; J1642; J7060

== ENCOUNTER 2023-02-27 16:37 | Inpatient (IN) | payer MEDICARE, OTHER ==
[~2023-02-27] VITALS: Ht 172.7 cm; Wt 82.0 kg
[~2023-02-27 16:37] MED LIST changes: +AMIT-118 PO; +ASPI-325 PO; +DIGO1TAB48 PO; +FURO40TA4 PO; +GABA-339 PO; -GABA600T PO; +LEVO50TA7 PO; +MET25T PO; +PANT40T PO; +PARO10TA93 PO; +SACU1TAB PO
[2023-02-27 19:54] LABS: Basophils # (auto) 0.1 10 ^3/uL (0-0.2); Eosinophils # (auto) 0 10 ^3/uL (0-0.8); Hemoglobin 14.3 g/dL (12.2-16.2); Lymphocytes # (auto) 1.3 10 ^3/uL (0.4-5.4); Neutrophils # (auto) 5.9 10 ^3/uL (1.6-8.6)
[2023-02-27 19:56] LABS: Basophils % (auto) 1.1 % (0.0-2.0); Eosinophils % (auto) 0.6 % (0.0-7.0); Hematocrit 45.8 % (36.0-46.0); Lymphocytes % (auto) 16.6 % (10.0-50.0); Mean Corpuscular Hemoglobin 28.5 pg (28.0-32.0); Mean Corpuscular Hgb Conc. 31.1 g/dL (32.0-36.0); Mean Corpuscular Volume 91.6 fL (80.0-100.0); Monocytes # (auto) 0.3 10 ^3/uL (0-1.3); Monocytes % (auto) 3.6 % (0.0-12.0); Neutrophils % (auto) 78.1 % (37.0-80.0); Nucleated Red Blood Cells % 0.2 %; White Blood Cell 7.5 10^3/uL (4.4-10.8)
[2023-02-27 20:13] LABS: Calcium 7.9 mg/dL (8.5-10.1); Potassium 4.7 mmol/L (3.5-5.1)
[2023-02-27 20:15] LABS: Lactic Acid w/Reflex 3.4 mmol/L (0.4-2.0)
[2023-02-27 20:16] LABS: Total Protein 6.4 g/dL (6.4-8.2)
[2023-02-27] MEDS ORDERED: cefTRIAXone 1GM/50ML D5W 50 ML IV ONE (21:30)
[2023-02-27] MEDS ORDERED: SODIUM CHLORIDE 0.9% 1,000 ML IV ONE (21:30)
[2023-02-27 23:45] LABS: Urine Bacteria FEW /hpf (None Seen); Urine Blood 2+ /uL (Negative); Urine Mucus FEW (None Seen); Urine Specific Gravity 1.017 (1.001-1.035); Urine WBC 2389 /hpf (0 - 5); Urine WBC Clumps PRESENT /hpf (None Seen)
[2023-02-28] VITALS (8 sets, daily range): BP systolic 91–119; BP diastolic 29–48
[2023-02-28] MEDS ORDERED: VANCOMYCIN 1GM/250ML 250 ML IV ONE (00:30)
[2023-02-28] MEDS ORDERED: SODIUM CHLORIDE 0.9% 1,000 ML IV ONE (00:30)
[2023-02-28] MEDS ORDERED: LACTATED RINGER'S 2,600 ML IV ONE (01:00)
[2023-02-28] MEDS ORDERED: MORPHINE SULFATE INJ 2 MG/ml SYRG IV PRN (01:15)
[2023-02-28] MEDS ORDERED: ACETAMINOPHEN 325 MG TAB PO PRN (01:15)
[2023-02-28] MEDS ORDERED: ONDANSETRON HCL 4 MG/2 ML VIAL IV PRN (01:15)
[2023-02-28] MEDS ORDERED: NITROGLYCERIN 0.4 MG SL TAB SL PRN (01:15)
[2023-02-28] MEDS ORDERED: ALBUMIN 5% 250 ML IV ONE (01:15)
[2023-02-28] MEDS ORDERED: IOHEXOL 350 MG/ML 100ML IJ ONE (01:51)
[2023-02-28] MEDS: NOREPINEPHRINE 8 MG/250ML KIT 250 ML IV SCH (02:46)
[2023-02-28 07:17] LABS: Basophils # (auto) 0.1 10 ^3/uL (0-0.2); Basophils % (auto) 0.9 % (0.0-2.0); Eosinophils # (auto) 0.1 10 ^3/uL (0-0.8); Eosinophils % (auto) 1.2 % (0.0-7.0); Hematocrit 35.6 % (36.0-46.0); Hemoglobin 11.7 g/dL (12.2-16.2); Lymphocytes # (auto) 0.8 10 ^3/uL (0.4-5.4); Lymphocytes % (auto) 12.5 % (10.0-50.0); Mean Corpuscular Hemoglobin 28.5 pg (28.0-32.0); Mean Corpuscular Hgb Conc. 32.8 g/dL (32.0-36.0); Mean Corpuscular Volume 87.1 fL (80.0-100.0); Monocytes # (auto) 0.5 10 ^3/uL (0-1.3); Neutrophils # (auto) 5.2 10 ^3/uL (1.6-8.6); Neutrophils % (auto) 78.4 % (37.0-80.0); Nucleated Red Blood Cells % 0.1 %; Red Blood Cells 4.09 10^6/uL (4.0-5.20); Red Cell Distribution Width 21.2 % (11.8-14.3); White Blood Cell 6.7 10^3/uL (4.4-10.8)
[2023-02-28 07:39] LABS: Albumin 2.3 g/dL (3.4-5.0)
[2023-02-28 07:43] LABS: BUN/Creatinine Ratio 28.7 (10.0-20.0); Bilirubin, Total 0.9 mg/dL (0.2-1.0)
[2023-02-28] MEDS: cefTRIAXone 1GM/50ML D5W 50 ML IV SCH (08:56)
[2023-02-28] MEDS: DIGOXIN 0.125 MG TAB PO SCH (10:07)
[2023-02-28] MEDS: AZITHROMYCIN 500MG/ 250ML 250 ML IV SCH (10:07)
[2023-02-28] MEDS: SACUBITRIL-VALSARTAN 24mg/26mg TAB PO SCH ×2 (10:07→23:11)
[2023-03-01] VITALS (91 sets, daily range): BP systolic 57–125; BP diastolic 24–75
[2023-03-01] MEDS: NOREPINEPHRINE 8 MG/250ML KIT 250 ML IV SCH ×2 (01:14→21:25)
[2023-03-01] MEDS ORDERED: POTA-220 PO (01:29)
[2023-03-01] MEDS ORDERED: APIX5TAB PO (01:29)
[2023-03-01 05:14] LABS: Hematocrit 41.8 % (36.0-46.0); Hemoglobin 13.5 g/dL (12.2-16.2); Mean Corpuscular Hemoglobin 28.2 pg (28.0-32.0); Mean Corpuscular Hgb Conc. 32.3 g/dL (32.0-36.0); Mean Corpuscular Volume 87.1 fL (80.0-100.0); Red Blood Cells 4.79 10^6/uL (4.0-5.20); White Blood Cell 5.8 10^3/uL (4.4-10.8)
[2023-03-01 05:18] LABS: Potassium 3.8 mmol/L (3.5-5.1)
[2023-03-01 05:20] LABS: Red Cell Distribution Width 21.5 % (11.8-14.3)
[2023-03-01 05:21] LABS: Basophils % (manual) 0 (0.0-2.0); Blast Cells 0; Metamyelocytes % 0; Myelocytes % 0; Promyelocytes % 0; Reactive Lymphocytes 0
[2023-03-01 05:26] LABS: Albumin 2.2 g/dL (3.4-5.0); BUN/Creatinine Ratio 28.4 (10.0-20.0); Bilirubin, Total 0.8 mg/dL (0.2-1.0); Calcium 7.9 mg/dL (8.5-10.1); Magnesium 2.1 mg/dL (1.6-2.6); Total Protein 5.7 g/dL (6.4-8.2)
[2023-03-01] MEDS: AZITHROMYCIN 500MG/ 250ML 250 ML IV SCH (07:37)
[2023-03-01] MEDS: cefTRIAXone 1GM/50ML D5W 50 ML IV SCH (07:37)
[2023-03-01] MEDS: SACUBITRIL-VALSARTAN 24mg/26mg TAB PO SCH ×2 (07:38→20:25)
[2023-03-01] MEDS: DIGOXIN 0.125 MG TAB PO SCH (07:38)
[2023-03-01 09:30] LABS: Band Neutrophils % (manual) 7; Eosinophils % (manual) 2 (0-7); Lymphocytes % (manual) 12 (10.0-50.0); Monocytes % (manual) 6 (0-12)
[2023-03-01] MEDS ORDERED: FLUCONAZOLE 200MG/100ML 100 ML IV ONE (13:00)
[2023-03-01] MEDS: PIPERACILLIN-TAZOB 3.375GM 100 ML IV SCH ×2 (13:03→21:25)
[2023-03-01] MEDS: APIXABAN 5 MG TAB PO SCH (21:26)
[2023-03-01] MEDS: GABAPENTIN 300 MG CAP PO SCH (21:26)
[2023-03-02] VITALS (93 sets, daily range): BP systolic 79–122; BP diastolic 39–65
[2023-03-02] MEDS: GABAPENTIN 300 MG CAP PO SCH ×3 (05:17→22:10)
[2023-03-02] MEDS: PIPERACILLIN-TAZOB 3.375GM 100 ML IV SCH ×3 (05:17→22:10)
[2023-03-02] MEDS: LEVOTHYROXINE SODIUM 50 MCG TAB PO SCH (06:02)
[2023-03-02] MEDS: APIXABAN 5 MG TAB PO SCH ×2 (09:51→22:10)
[2023-03-02] MEDS: DIGOXIN 0.125 MG TAB PO SCH (09:56)
[2023-03-02] MEDS: ASPirin 81 mg TAB PO SCH (09:57)
[2023-03-02] MEDS: PARoxetine 20 MG TAB PO SCH (09:57)
[2023-03-02] MEDS: SACUBITRIL-VALSARTAN 24mg/26mg TAB PO SCH ×2 (09:58→22:10)
[2023-03-02] MEDS: POTASSIUM CHL 20 Meq TABLET PO SCH (09:59)
[2023-03-02] MEDS: FLUCONAZOLE 200MG/100ML 100 ML IV SCH (10:00)
[2023-03-02] MEDS: PANTOPRAZOLE 40 MG/10 ML VIAL INJ IV SCH (10:01)
[2023-03-02] MEDS: NOREPINEPHRINE 8 MG/250ML KIT 250 ML IV SCH (11:53)
[2023-03-03] VITALS (93 sets, daily range): BP systolic 61–126; BP diastolic 38–80
[2023-03-03] MEDS: NOREPINEPHRINE 8 MG/250ML KIT 250 ML IV SCH ×2 (01:17→16:00)
[2023-03-03 05:14] LABS: Albumin 1.9 g/dL (3.4-5.0); BUN/Creatinine Ratio 26.2 (10.0-20.0); Calcium 7.8 mg/dL (8.5-10.1); Potassium 3.8 mmol/L (3.5-5.1)
[2023-03-03 05:17] LABS: Total Protein 5.5 g/dL (6.4-8.2)
[2023-03-03 05:19] LABS: Basophils # (auto) 0.1 10 ^3/uL (0-0.2); Basophils % (auto) 0.8 % (0.0-2.0); Eosinophils # (auto) 0.1 10 ^3/uL (0-0.8); Eosinophils % (auto) 1.7 % (0.0-7.0); Hematocrit 39.3 % (36.0-46.0); Hemoglobin 12.9 g/dL (12.2-16.2); Lymphocytes # (auto) 0.9 10 ^3/uL (0.4-5.4); Lymphocytes % (auto) 12.5 % (10.0-50.0); Mean Corpuscular Hemoglobin 28.5 pg (28.0-32.0); Mean Corpuscular Hgb Conc. 32.9 g/dL (32.0-36.0); Mean Corpuscular Volume 86.8 fL (80.0-100.0); Monocytes # (auto) 0.4 10 ^3/uL (0-1.3); Neutrophils # (auto) 5.6 10 ^3/uL (1.6-8.6); Nucleated Red Blood Cells % 0.2 %; Red Blood Cells 4.53 10^6/uL (4.0-5.20); White Blood Cell 7.1 10^3/uL (4.4-10.8)
[2023-03-03 05:31] LABS: Red Cell Distribution Width 21.4 % (11.8-14.3)
[2023-03-03] MEDS: GABAPENTIN 300 MG CAP PO SCH ×3 (06:20→22:15)
[2023-03-03] MEDS: PIPERACILLIN-TAZOB 3.375GM 100 ML IV SCH ×3 (06:20→22:15)
[2023-03-03] MEDS: LEVOTHYROXINE SODIUM 50 MCG TAB PO SCH (06:22)
[2023-03-03] MEDS: APIXABAN 5 MG TAB PO SCH ×2 (09:52→22:15)
[2023-03-03] MEDS: PANTOPRAZOLE 40 MG/10 ML VIAL INJ IV SCH (09:52)
[2023-03-03] MEDS: ASPirin 81 mg TAB PO SCH (09:52)
[2023-03-03] MEDS: POTASSIUM CHL 20 Meq TABLET PO SCH (09:53)
[2023-03-03] MEDS: DIGOXIN 0.125 MG TAB PO SCH (09:53)
[2023-03-03] MEDS: PARoxetine 20 MG TAB PO SCH (09:53)
[2023-03-03] MEDS: FLUCONAZOLE 200MG/100ML 100 ML IV SCH (09:54)
[2023-03-03] MEDS: SACUBITRIL-VALSARTAN 24mg/26mg TAB PO SCH ×2 (10:00→22:00)
[2023-03-03] MEDS: FUROSEMIDE 40 MG/4 ML VIAL IV SCH (17:46)
[2023-03-04] VITALS (90 sets, daily range): BP systolic 80–136; BP diastolic 26–78
[2023-03-04] MEDS: NOREPINEPHRINE 8 MG/250ML KIT 250 ML IV SCH ×2 (04:25→14:26)
[2023-03-04] MEDS: PIPERACILLIN-TAZOB 3.375GM 100 ML IV SCH ×3 (05:57→22:06)
[2023-03-04] MEDS: FUROSEMIDE 40 MG/4 ML VIAL IV SCH ×2 (05:57→17:40)
[2023-03-04] MEDS: GABAPENTIN 300 MG CAP PO SCH ×3 (05:57→22:06)
[2023-03-04] MEDS: LEVOTHYROXINE SODIUM 50 MCG TAB PO SCH (06:46)
[2023-03-04] MEDS: SACUBITRIL-VALSARTAN 24mg/26mg TAB PO SCH ×2 (10:00→22:00)
[2023-03-04] MEDS: ASPirin 81 mg TAB PO SCH (10:31)
[2023-03-04] MEDS: PANTOPRAZOLE 40 MG/10 ML VIAL INJ IV SCH (10:31)
[2023-03-04] MEDS: FLUCONAZOLE 200MG/100ML 100 ML IV SCH (10:31)
[2023-03-04] MEDS: DIGOXIN 0.125 MG TAB PO SCH (10:31)
[2023-03-04] MEDS: PARoxetine 20 MG TAB PO SCH (10:32)
[2023-03-04] MEDS: POTASSIUM CHL 20 Meq TABLET PO SCH (10:32)
[2023-03-04] MEDS: APIXABAN 5 MG TAB PO SCH ×2 (10:32→22:06)
[2023-03-05] VITALS (79 sets, daily range): BP systolic 72–122; BP diastolic 41–68
[2023-03-05] MEDS: GABAPENTIN 300 MG CAP PO SCH ×3 (06:00→22:00)
[2023-03-05] MEDS: FUROSEMIDE 40 MG/4 ML VIAL IV SCH ×2 (06:26→16:40)
[2023-03-05] MEDS: PIPERACILLIN-TAZOB 3.375GM 100 ML IV SCH ×3 (06:26→21:59)
[2023-03-05] MEDS: SACUBITRIL-VALSARTAN 24mg/26mg TAB PO SCH (07:34)
[2023-03-05] MEDS: PANTOPRAZOLE 40 MG/10 ML VIAL INJ IV SCH (08:53)
[2023-03-05] MEDS: LEVOTHYROXINE SODIUM 50 MCG TAB PO SCH (08:54)
[2023-03-05] MEDS: APIXABAN 5 MG TAB PO SCH ×2 (08:54→22:00)
[2023-03-05] MEDS: DIGOXIN 0.125 MG TAB PO SCH (08:54)
[2023-03-05] MEDS: POTASSIUM CHL 20 Meq TABLET PO SCH (08:54)
[2023-03-05] MEDS: ASPirin 81 mg TAB PO SCH (08:54)
[2023-03-05] MEDS: FLUCONAZOLE 200MG/100ML 100 ML IV SCH (08:54)
[2023-03-05] MEDS: PARoxetine 20 MG TAB PO SCH (08:55)
[2023-03-05] MEDS: NOREPINEPHRINE 8 MG/250ML KIT 250 ML IV SCH ×2 (08:56→14:26)
[2023-03-05 11:09] LABS: Basophils # (auto) 0.1 10 ^3/uL (0-0.2); Basophils % (auto) 1.1 % (0.0-2.0); Eosinophils # (auto) 0.2 10 ^3/uL (0-0.8); Eosinophils % (auto) 1.8 % (0.0-7.0); Hematocrit 39.8 % (36.0-46.0); Hemoglobin 12.9 g/dL (12.2-16.2); Lymphocytes # (auto) 1.3 10 ^3/uL (0.4-5.4); Lymphocytes % (auto) 14.9 % (10.0-50.0); Mean Corpuscular Hgb Conc. 32.3 g/dL (32.0-36.0); Mean Corpuscular Volume 86.6 fL (80.0-100.0); Monocytes # (auto) 0.5 10 ^3/uL (0-1.3); Neutrophils # (auto) 6.5 10 ^3/uL (1.6-8.6); Neutrophils % (auto) 76.2 % (37.0-80.0); Nucleated Red Blood Cells % 0.1 %; Red Cell Distribution Width 21.5 % (11.8-14.3); White Blood Cell 8.5 10^3/uL (4.4-10.8)
[2023-03-05 11:27] LABS: Albumin 1.8 g/dL (3.4-5.0); Calcium 7.6 mg/dL (8.5-10.1)
[2023-03-05 11:30] LABS: BUN/Creatinine Ratio 20.6 (10.0-20.0); Total Protein 5.6 g/dL (6.4-8.2)
[2023-03-05] MEDS: Ensure Enlive Chocolate 8oz Bottle PO SCH ×2 (13:09→22:00)
[2023-03-06] VITALS (84 sets, daily range): BP systolic 83–124; BP diastolic 34–71
[2023-03-06] MEDS: NOREPINEPHRINE 8 MG/250ML KIT 250 ML IV SCH ×3 (00:01→16:22)
[2023-03-06 04:19] LABS: Basophils # (auto) 0.1 10 ^3/uL (0-0.2); Basophils % (auto) 1.1 % (0.0-2.0); Eosinophils # (auto) 0.3 10 ^3/uL (0-0.8); Hematocrit 37.8 % (36.0-46.0); Hemoglobin 12.5 g/dL (12.2-16.2); Lymphocytes # (auto) 1.1 10 ^3/uL (0.4-5.4); Lymphocytes % (auto) 13.6 % (10.0-50.0); Mean Corpuscular Hemoglobin 28.8 pg (28.0-32.0); Mean Corpuscular Volume 87.2 fL (80.0-100.0); Monocytes # (auto) 0.4 10 ^3/uL (0-1.3); Monocytes % (auto) 5.2 % (0.0-12.0); Neutrophils # (auto) 6.4 10 ^3/uL (1.6-8.6); Neutrophils % (auto) 77.1 % (37.0-80.0); Nucleated Red Blood Cells % 0.3 %; Red Blood Cells 4.34 10^6/uL (4.0-5.20); White Blood Cell 8.4 10^3/uL (4.4-10.8)
[2023-03-06 04:38] LABS: Red Cell Distribution Width 21.3 % (11.8-14.3)
[2023-03-06 04:39] LABS: BUN/Creatinine Ratio 26.8 (10.0-20.0); Calcium 7.4 mg/dL (8.5-10.1)
[2023-03-06 05:22] LABS: Potassium 2.9 mmol/L (3.5-5.1)
[2023-03-06] MEDS: GABAPENTIN 300 MG CAP PO SCH ×3 (05:48→21:26)
[2023-03-06] MEDS: PIPERACILLIN-TAZOB 3.375GM 100 ML IV SCH ×3 (05:48→21:20)
[2023-03-06] MEDS: Ensure Enlive Chocolate 8oz Bottle PO SCH ×3 (05:48→21:27)
[2023-03-06] MEDS: FUROSEMIDE 40 MG/4 ML VIAL IV SCH (05:48)
[2023-03-06] MEDS: LEVOTHYROXINE SODIUM 50 MCG TAB PO SCH (06:30)
[2023-03-06] MEDS: ALBUMIN 25% 50 ML IV SCH ×2 (08:46→16:24)
[2023-03-06] MEDS: POTASSIUM CHL 20MEQ/100ML 100 ML IV SCH ×3 (08:46→14:19)
[2023-03-06] MEDS: PANTOPRAZOLE 40 MG/10 ML VIAL INJ IV SCH (09:45)
[2023-03-06] MEDS: DIGOXIN 0.125 MG TAB PO SCH (09:46)
[2023-03-06] MEDS: FLUCONAZOLE 200MG/100ML 100 ML IV SCH (09:46)
[2023-03-06] MEDS: ASPirin 81 mg TAB PO SCH (09:46)
[2023-03-06] MEDS: PARoxetine 20 MG TAB PO SCH (09:46)
[2023-03-06] MEDS: APIXABAN 5 MG TAB PO SCH ×2 (09:46→21:26)
[2023-03-06] MEDS: POTASSIUM CHL 20 Meq TABLET PO SCH (09:46)
[2023-03-06] MEDS ORDERED: FUROSEMIDE 40 MG/4 ML VIAL IV SCH (10:00)
[2023-03-07] VITALS (92 sets, daily range): BP systolic 63–146; BP diastolic 22–83
[2023-03-07] MEDS: ALBUMIN 25% 50 ML IV SCH (00:33)
[2023-03-07] MEDS: NOREPINEPHRINE 8 MG/250ML KIT 250 ML IV SCH ×2 (01:36→11:03)
[2023-03-07 03:53] LABS: Basophils # (auto) 0.1 10 ^3/uL (0-0.2); Basophils % (auto) 1.1 % (0.0-2.0); Eosinophils # (auto) 0.2 10 ^3/uL (0-0.8); Eosinophils % (auto) 3.4 % (0.0-7.0); Hematocrit 32.2 % (36.0-46.0); Hemoglobin 10.7 g/dL (12.2-16.2); Lymphocytes # (auto) 0.9 10 ^3/uL (0.4-5.4); Lymphocytes % (auto) 13.9 % (10.0-50.0); Mean Corpuscular Hemoglobin 28.8 pg (28.0-32.0); Mean Corpuscular Hgb Conc. 33.3 g/dL (32.0-36.0); Mean Corpuscular Volume 86.4 fL (80.0-100.0); Monocytes # (auto) 0.3 10 ^3/uL (0-1.3); Neutrophils # (auto) 4.7 10 ^3/uL (1.6-8.6); Neutrophils % (auto) 76.6 % (37.0-80.0); Nucleated Red Blood Cells % 0.2 %; Red Blood Cells 3.73 10^6/uL (4.0-5.20); White Blood Cell 6.2 10^3/uL (4.4-10.8)
[2023-03-07 04:10] LABS: Calcium 7.4 mg/dL (8.5-10.1); Potassium 3.5 mmol/L (3.5-5.1)
[2023-03-07 04:12] LABS: BUN/Creatinine Ratio 28.8 (10.0-20.0)
[2023-03-07] MEDS: Ensure Enlive Chocolate 8oz Bottle PO SCH ×3 (06:16→21:22)
[2023-03-07] MEDS: PIPERACILLIN-TAZOB 3.375GM 100 ML IV SCH ×3 (06:16→21:21)
[2023-03-07] MEDS: GABAPENTIN 300 MG CAP PO SCH ×3 (06:16→21:21)
[2023-03-07] MEDS: LEVOTHYROXINE SODIUM 50 MCG TAB PO SCH (06:16)
[2023-03-07] MEDS: PANTOPRAZOLE 40 MG/10 ML VIAL INJ IV SCH (10:46)
[2023-03-07] MEDS: APIXABAN 5 MG TAB PO SCH (10:46)
[2023-03-07] MEDS: DIGOXIN 0.125 MG TAB PO SCH (10:46)
[2023-03-07] MEDS: FLUCONAZOLE 200MG/100ML 100 ML IV SCH (10:46)
[2023-03-07] MEDS: ASPirin 81 mg TAB PO SCH (10:47)
[2023-03-07] MEDS: POTASSIUM CHL 20 Meq TABLET PO SCH (10:47)
[2023-03-07] MEDS: PARoxetine 20 MG TAB PO SCH (10:47)
[2023-03-07] MEDS ORDERED: HYDROCORTISONE SOD SUCC 100 MG/2ML INJ VIAL IV ONE (13:15)
[2023-03-07] MEDS ORDERED: POTASSIUM EFFERVESENT TAB 25 MEQ PO ONE (14:00)
[2023-03-07] MEDS: MIDODRINE HCL 10 MG TAB PO SCH ×2 (15:27→18:35)
[2023-03-07] MEDS: BUMETANIDE 2.5mg/10ml (0.25 mg/ml) INJ IV SCH (18:35)
[2023-03-07] MEDS: HYDROCORTISONE SOD SUCC 100 MG/2ML INJ VIAL IV SCH (21:21)
[2023-03-08] VITALS (95 sets, daily range): BP systolic 78–155; BP diastolic 38–79
[2023-03-08] MEDS: NOREPINEPHRINE 8 MG/250ML KIT 250 ML IV SCH (00:35)
[2023-03-08 04:23] LABS: Basophils # (auto) 0 10 ^3/uL (0-0.2); Basophils % (auto) 0.2 % (0.0-2.0); Eosinophils # (auto) 0 10 ^3/uL (0-0.8); Eosinophils % (auto) 0.1 % (0.0-7.0); Hemoglobin 11.9 g/dL (12.2-16.2); Lymphocytes # (auto) 0.7 10 ^3/uL (0.4-5.4); Mean Corpuscular Hemoglobin 28.6 pg (28.0-32.0); Mean Corpuscular Volume 86.7 fL (80.0-100.0); Monocytes # (auto) 0.1 10 ^3/uL (0-1.3); Monocytes % (auto) 1.5 % (0.0-12.0); Neutrophils # (auto) 5.2 10 ^3/uL (1.6-8.6); Neutrophils % (auto) 86.2 % (37.0-80.0); Nucleated Red Blood Cells % 0.4 %; Red Blood Cells 4.15 10^6/uL (4.0-5.20)
[2023-03-08 04:28] LABS: BUN/Creatinine Ratio 26.9 (10.0-20.0); Calcium 8.3 mg/dL (8.5-10.1)
[2023-03-08] MEDS: BUMETANIDE 2.5mg/10ml (0.25 mg/ml) INJ IV SCH ×2 (05:41→18:24)
[2023-03-08] MEDS: MIDODRINE HCL 10 MG TAB PO SCH ×3 (05:42→18:22)
[2023-03-08] MEDS: GABAPENTIN 300 MG CAP PO SCH ×3 (05:42→21:15)
[2023-03-08] MEDS: LEVOTHYROXINE SODIUM 50 MCG TAB PO SCH (05:42)
[2023-03-08] MEDS: Ensure Enlive Chocolate 8oz Bottle PO SCH ×3 (05:42→21:16)
[2023-03-08] MEDS: PIPERACILLIN-TAZOB 3.375GM 100 ML IV SCH (05:42)
[2023-03-08] MEDS ORDERED: ENOXAPARIN SOD 30 MG/0.3 ML SYRINGE SC SCH (10:00)
[2023-03-08] MEDS: POTASSIUM CHL 20 Meq TABLET PO SCH (10:45)
[2023-03-08] MEDS: FLUCONAZOLE 200MG/100ML 100 ML IV SCH (10:45)
[2023-03-08] MEDS ORDERED: APIXABAN 2.5 MG TAB PO ONE (10:45)
[2023-03-08] MEDS: PANTOPRAZOLE 40 MG/10 ML VIAL INJ IV SCH (10:47)
[2023-03-08] MEDS: DIGOXIN 0.125 MG TAB PO SCH (10:47)
[2023-03-08] MEDS: HYDROCORTISONE SOD SUCC 100 MG/2ML INJ VIAL IV SCH ×2 (10:48→21:15)
[2023-03-08] MEDS: PARoxetine 20 MG TAB PO SCH (11:18)
[2023-03-08] MEDS: APIXABAN 2.5 MG TAB PO SCH (21:15)
[2023-03-09] VITALS (92 sets, daily range): BP systolic 82–129; BP diastolic 31–74
[2023-03-09] MEDS: NOREPINEPHRINE 8 MG/250ML KIT 250 ML IV SCH ×2 (01:00→21:58)
[2023-03-09 04:18] LABS: Basophils # (auto) 0 10 ^3/uL (0-0.2); Basophils % (auto) 0.2 % (0.0-2.0); Eosinophils # (auto) 0 10 ^3/uL (0-0.8); Eosinophils % (auto) 0.1 % (0.0-7.0); Hematocrit 32.2 % (36.0-46.0); Hemoglobin 10.8 g/dL (12.2-16.2); Lymphocytes # (auto) 0.8 10 ^3/uL (0.4-5.4); Lymphocytes % (auto) 9.9 % (10.0-50.0); Mean Corpuscular Hemoglobin 28.8 pg (28.0-32.0); Mean Corpuscular Hgb Conc. 33.6 g/dL (32.0-36.0); Mean Corpuscular Volume 85.8 fL (80.0-100.0); Monocytes # (auto) 0.3 10 ^3/uL (0-1.3); Monocytes % (auto) 3.2 % (0.0-12.0); Neutrophils # (auto) 6.8 10 ^3/uL (1.6-8.6); Neutrophils % (auto) 86.6 % (37.0-80.0); Nucleated Red Blood Cells % 0.3 %; Red Blood Cells 3.76 10^6/uL (4.0-5.20); White Blood Cell 7.9 10^3/uL (4.4-10.8)
[2023-03-09 04:34] LABS: Potassium 3.6 mmol/L (3.5-5.1)
[2023-03-09 04:38] LABS: Calcium 8.1 mg/dL (8.5-10.1)
[2023-03-09 04:51] LABS: BUN/Creatinine Ratio 28.3 (10.0-20.0)
[2023-03-09] MEDS: LEVOTHYROXINE SODIUM 50 MCG TAB PO SCH (05:39)
[2023-03-09] MEDS: GABAPENTIN 300 MG CAP PO SCH ×3 (05:39→21:47)
[2023-03-09] MEDS: MIDODRINE HCL 10 MG TAB PO SCH ×3 (05:39→18:16)
[2023-03-09] MEDS: BUMETANIDE 2.5mg/10ml (0.25 mg/ml) INJ IV SCH ×2 (05:40→18:16)
[2023-03-09] MEDS: Ensure Enlive Chocolate 8oz Bottle PO SCH ×3 (05:42→21:48)
[2023-03-09] MEDS: PANTOPRAZOLE 40 MG/10 ML VIAL INJ IV SCH (11:22)
[2023-03-09] MEDS: POTASSIUM CHL 20 Meq TABLET PO SCH (11:22)
[2023-03-09] MEDS: HYDROCORTISONE SOD SUCC 100 MG/2ML INJ VIAL IV SCH ×2 (11:22→21:47)
[2023-03-09] MEDS: PARoxetine 20 MG TAB PO SCH (11:22)
[2023-03-09] MEDS: DIGOXIN 0.125 MG TAB PO SCH (11:23)
[2023-03-09] MEDS: APIXABAN 2.5 MG TAB PO SCH ×2 (11:23→21:47)
[2023-03-10] VITALS (95 sets, daily range): BP systolic 89–124; BP diastolic 43–64
[2023-03-10] MEDS: Ensure Enlive Chocolate 8oz Bottle PO SCH ×3 (05:31→21:40)
[2023-03-10] MEDS: MIDODRINE HCL 10 MG TAB PO SCH ×3 (05:31→17:48)
[2023-03-10] MEDS: GABAPENTIN 300 MG CAP PO SCH ×3 (05:31→21:40)
[2023-03-10] MEDS: BUMETANIDE 2.5mg/10ml (0.25 mg/ml) INJ IV SCH ×2 (05:32→17:49)
[2023-03-10] MEDS: LEVOTHYROXINE SODIUM 50 MCG TAB PO SCH (06:31)
[2023-03-10 08:42] LABS: Basophils # (auto) 0 10 ^3/uL (0-0.2); Basophils % (auto) 0.1 % (0.0-2.0); Eosinophils # (auto) 0 10 ^3/uL (0-0.8); Hematocrit 35.9 % (36.0-46.0); Hemoglobin 11.5 g/dL (12.2-16.2); Lymphocytes # (auto) 0.8 10 ^3/uL (0.4-5.4); Lymphocytes % (auto) 9.3 % (10.0-50.0); Mean Corpuscular Hemoglobin 28.2 pg (28.0-32.0); Mean Corpuscular Hgb Conc. 32.1 g/dL (32.0-36.0); Mean Corpuscular Volume 87.8 fL (80.0-100.0); Monocytes # (auto) 0.3 10 ^3/uL (0-1.3); Monocytes % (auto) 3.9 % (0.0-12.0); Neutrophils # (auto) 7.5 10 ^3/uL (1.6-8.6); Neutrophils % (auto) 86.7 % (37.0-80.0); Nucleated Red Blood Cells % 0.4 %; Red Blood Cells 4.09 10^6/uL (4.0-5.20); Red Cell Distribution Width 21.1 % (11.8-14.3); White Blood Cell 8.7 10^3/uL (4.4-10.8)
[2023-03-10 08:58] LABS: BUN/Creatinine Ratio 32.9 (10.0-20.0); Calcium 8.1 mg/dL (8.5-10.1); Potassium 3.3 mmol/L (3.5-5.1)
[2023-03-10] MEDS: APIXABAN 2.5 MG TAB PO SCH ×2 (09:51→21:40)
[2023-03-10] MEDS: PARoxetine 20 MG TAB PO SCH (09:51)
[2023-03-10] MEDS: PANTOPRAZOLE 40 MG/10 ML VIAL INJ IV SCH (09:52)
[2023-03-10] MEDS: HYDROCORTISONE SOD SUCC 100 MG/2ML INJ VIAL IV SCH ×2 (09:52→21:40)
[2023-03-10] MEDS: POTASSIUM CHL 20 Meq TABLET PO SCH (10:00)
[2023-03-10] MEDS: DIGOXIN 0.125 MG TAB PO SCH (10:02)
[2023-03-10] MEDS ORDERED: POTASSIUM CHL 20MEQ/100ML 100 ML IV ONE (15:00)
[2023-03-10] MEDS ORDERED: CLINIMIX PER PHARMACY 0 ML IV SCH (15:00)
[2023-03-10 15:28] LABS: Magnesium 1.9 mg/dL (1.6-2.6); Phosphorus 3.4 mg/dL (2.5-4.90)
[2023-03-10] MEDS ORDERED: AMINO ACID INFUSION IN D10W 1,000 ML IV NR (20:00)
[2023-03-10] MEDS: ACCU-CHEK COMFORT CURVE STRIP VI SCH (23:43)
[2023-03-10] MEDS: InsuLIN REG 1unit/0.01ml Soln (100units/ml) SC SCH (23:43)
[2023-03-11] VITALS (79 sets, daily range): BP systolic 87–116; BP diastolic 38–64
[2023-03-11] MEDS ORDERED: DEXTROSE (50%) 50ML SYRG IV SCH
[2023-03-11] MEDS: NOREPINEPHRINE 8 MG/250ML KIT 250 ML IV SCH (01:00)
[2023-03-11] MEDS: GABAPENTIN 300 MG CAP PO SCH ×3 (05:55→22:09)
[2023-03-11 05:56] LABS: BUN/Creatinine Ratio 33.7 (10.0-20.0); Calcium 7.6 mg/dL (8.5-10.1); Potassium 3.7 mmol/L (3.5-5.1)
[2023-03-11] MEDS: ACCU-CHEK COMFORT CURVE STRIP VI SCH ×3 (05:56→17:23)
[2023-03-11] MEDS: BUMETANIDE 2.5mg/10ml (0.25 mg/ml) INJ IV SCH ×2 (05:56→17:22)
[2023-03-11] MEDS: InsuLIN REG 1unit/0.01ml Soln (100units/ml) SC SCH ×3 (05:58→17:26)
[2023-03-11] MEDS: Ensure Enlive Chocolate 8oz Bottle PO SCH ×3 (06:00→22:09)
[2023-03-11] MEDS: MIDODRINE HCL 10 MG TAB PO SCH ×3 (06:00→17:22)
[2023-03-11] MEDS: LEVOTHYROXINE SODIUM 50 MCG TAB PO SCH (06:00)
[2023-03-11 06:01] LABS: Hematocrit 33.7 % (36.0-46.0); Hemoglobin 11.1 g/dL (12.2-16.2); Mean Corpuscular Hemoglobin 28.7 pg (28.0-32.0); Mean Corpuscular Volume 87.2 fL (80.0-100.0); Red Blood Cells 3.87 10^6/uL (4.0-5.20); White Blood Cell 5.9 10^3/uL (4.4-10.8)
[2023-03-11 06:14] LABS: Red Cell Distribution Width 21.1 % (11.8-14.3)
[2023-03-11 06:16] LABS: Basophils % (manual) 0 (0.0-2.0); Blast Cells 0; Eosinophils % (manual) 0 (0-7); Metamyelocytes % 0; Promyelocytes % 0; Reactive Lymphocytes 0
[2023-03-11 07:47] LABS: Band Neutrophils % (manual) 4; Lymphocytes % (manual) 4 (10.0-50.0); Monocytes % (manual) 9 (0-12); Myelocytes % 1
[2023-03-11] MEDS: DIGOXIN 0.125 MG TAB PO SCH (10:00)
[2023-03-11] MEDS: POTASSIUM CHL 20 Meq TABLET PO SCH (10:00)
[2023-03-11] MEDS: PANTOPRAZOLE 40 MG/10 ML VIAL INJ IV SCH (10:24)
[2023-03-11] MEDS: APIXABAN 2.5 MG TAB PO SCH ×2 (10:24→22:09)
[2023-03-11] MEDS: PARoxetine 20 MG TAB PO SCH (10:24)
[2023-03-11] MEDS: HYDROCORTISONE SOD SUCC 100 MG/2ML INJ VIAL IV SCH ×2 (10:26→22:08)
[2023-03-11] MEDS ORDERED: AMINO ACID INFUSION IN D10W 1,000 ML IV NR (20:00)
[2023-03-11] MEDS ORDERED: ATORVASTATIN 20 MG TAB PO SCH (22:00)
[2023-03-12] VITALS (24 sets, daily range): BP systolic 89–123; BP diastolic 44–100
[2023-03-12] MEDS: ACCU-CHEK COMFORT CURVE STRIP VI SCH ×4 (00:41→17:36)
[2023-03-12] MEDS: InsuLIN REG 1unit/0.01ml Soln (100units/ml) SC SCH ×4 (00:42→17:37)
[2023-03-12] MEDS: NOREPINEPHRINE 8 MG/250ML KIT 250 ML IV SCH (01:00)
[2023-03-12 04:11] LABS: Hematocrit 34.3 % (36.0-46.0); Hemoglobin 11.1 g/dL (12.2-16.2); Mean Corpuscular Hemoglobin 28.7 pg (28.0-32.0); Mean Corpuscular Hgb Conc. 32.5 g/dL (32.0-36.0); Mean Corpuscular Volume 88.3 fL (80.0-100.0); Red Blood Cells 3.88 10^6/uL (4.0-5.20); White Blood Cell 6.9 10^3/uL (4.4-10.8)
[2023-03-12 04:15] LABS: Basophils % (manual) 0 (0.0-2.0); Blast Cells 0; Eosinophils % (manual) 0 (0-7); Metamyelocytes % 0; Promyelocytes % 0; Reactive Lymphocytes 0; Red Cell Distribution Width 21.3 % (11.8-14.3)
[2023-03-12 04:31] LABS: Albumin 2.2 g/dL (3.4-5.0); Calcium 7.9 mg/dL (8.5-10.1); Magnesium 1.9 mg/dL (1.6-2.6); Potassium 3.3 mmol/L (3.5-5.1)
[2023-03-12 04:33] LABS: BUN/Creatinine Ratio 43.2 (10.0-20.0)
[2023-03-12 04:35] LABS: Bilirubin, Total 0.5 mg/dL (0.2-1.0); Phosphorus 3.3 mg/dL (2.5-4.90); Total Protein 5.3 g/dL (6.4-8.2)
[2023-03-12 05:22] LABS: Band Neutrophils % (manual) 3; Lymphocytes % (manual) 8 (10.0-50.0); Monocytes % (manual) 1 (0-12); Myelocytes % 2
[2023-03-12] MEDS: Ensure Enlive Chocolate 8oz Bottle PO SCH ×2 (06:00→14:00)
[2023-03-12] MEDS: BUMETANIDE 2.5mg/10ml (0.25 mg/ml) INJ IV SCH (07:23)
[2023-03-12] MEDS: GABAPENTIN 300 MG CAP PO SCH ×2 (07:24→15:51)
[2023-03-12] MEDS: LEVOTHYROXINE SODIUM 50 MCG TAB PO SCH (07:24)
[2023-03-12] MEDS: MIDODRINE HCL 10 MG TAB PO SCH ×3 (07:24→17:32)
[2023-03-12] MEDS: HYDROCORTISONE SOD SUCC 100 MG/2ML INJ VIAL IV SCH (10:00)
[2023-03-12] MEDS: PANTOPRAZOLE 40 MG/10 ML VIAL INJ IV SCH (10:00)
[2023-03-12] MEDS ORDERED: POTASSIUM EFFERVESENT TAB 25 MEQ PO ONE (10:00)
[2023-03-12] MEDS: PARoxetine 20 MG TAB PO SCH (10:02)
[2023-03-12] MEDS: DIGOXIN 0.125 MG TAB PO SCH (10:02)
[2023-03-12] MEDS: APIXABAN 2.5 MG TAB PO SCH (10:02)
[2023-03-12] MEDS: POTASSIUM CHL 20 Meq TABLET PO SCH (10:02)
[2023-03-12] MEDS ORDERED: FUROSEMIDE 20 MG TAB PO SCH (18:00)
[2023-03-12] MEDS ORDERED: HYDROCORTISONE SOD SUCC 100 MG/2ML INJ VIAL IV SCH (22:00)
== END 2023-03-12 18:34 | disposition short-term general hospital (02) | DRG 871 ==
LOC: EDBD 16:37 → ER 16:37 → EDUNIT# 16:37 → TELE 02-28 01:08 → ICU CENTRL 02-28 21:25 → DOU IN ICU 02-28 22:00 → ICU CENTRL 02-28 22:00 → ICU WEST 03-04 21:24
PROVIDERS: ADMIT Nurse Practitioner; ATTEND Nurse Practitioner Acute Care
DX: A41.89 Other specified sepsis (principal); G93.41 Metabolic encephalopathy; I50.33 Acute on chronic diastolic (congestive) heart failure; R65.21 Severe sepsis with septic shock; E87.1 Hypo-osmolality and hyponatremia; E87.20 Acidosis, unspecified; M33.20 Polymyositis, organ involvement unspecified; N30.01 Acute cystitis with hematuria; E86.0 Dehydration; K52.9 Noninfective gastroenteritis and colitis, unspecified; I48.91 Unspecified atrial fibrillation; I11.0 Hypertensive heart disease with heart failure; R79.89 Other specified abnormal findings of blood chemistry; R77.8 Other specified abnormalities of plasma proteins; D69.6 Thrombocytopenia, unspecified; D64.9 Anemia, unspecified; E07.9 Disorder of thyroid, unspecified; K80.20 Calculus of gallbladder without cholecystitis without obstruction; G62.9 Polyneuropathy, unspecified; E66.9 Obesity, unspecified; J44.9 Chronic obstructive pulmonary disease, unspecified; Z79.899 Other long term (current) drug therapy; Z80.0 Family history of malignant neoplasm of digestive organs; Z82.49 Family history of ischemic heart disease and other diseases of the circulatory system; Z83.3 Family history of diabetes mellitus; Z86.73 Personal history of transient ischemic attack (TIA), and cerebral infarction without residual deficits; Z87.440 Personal history of urinary (tract) infections; Z90.12 Acquired absence of left breast and nipple; Z90.710 Acquired absence of both cervix and uterus; Z79.01 Long term (current) use of anticoagulants; Z68.29 Body mass index [BMI] 29.0-29.9, adult
CPT/HCPCS: 36415; 70551; 71045; 71260; 74176; 74177; 76705; 80048; 80053; 80162; 81001; 82270; 82533; 82962; 83605; 83690; 83735; 83880; 84100; 84484; 85007; 85025; 85027; 86850; 86900; 86901; 87040; 87045; 87077; 87081; 87086; 87088; 87186; 87427; 87493; 93005; 93970; 95819; 97110; 97116; 97163; 97530; C9113; G0378; J0696; J1450; J2543; J3480; J7060